=== PATIENT | male | born 1975 | race Caucasian/White ===

== ENCOUNTER 2019-05-17 13:25 | Emergency (ER) | payer OTHER ==
[~2019-05-17] VITALS: Ht 172.7 cm; Wt 86.2 kg
[2019-05-17 13:29] VITALS: Ht 172.7 cm; Wt 86.2 kg
[2019-05-17 16:38] VITALS: BP 132/75
== END 2019-05-17 16:38 | disposition home or self-care (01) ==
LOC: ED 13:25
DX: S80.852A Superficial foreign body, left lower leg, initial encounter (principal); W45.8XXA Other foreign body or object entering through skin, initial encounter; Y93.89 Activity, other specified; Y92.89 Other specified places as the place of occurrence of the external cause; Y99.8 Other external cause status
CPT/HCPCS: J2001